=== PATIENT | male | born 1995 | race Caucasian/White ===

== ENCOUNTER 2017-09-09 12:32 | Emergency (ER) | payer OTHER ==
[~2017-09-09] VITALS: Ht 177.8 cm; Wt 74.0 kg
[2017-09-09 12:34] VITALS: TEMP 36.5; Ht 177.8 cm; Wt 74.0 kg
--- NOTE | 2017-09-09 12:47 | EMERGENCY ROOM VISIT NOTE ---
History Report prepared by Macario: Jaylyn Julian Under the Supervision of: Dr. Kelvin Foster M.D. First contact with patient: 12:38 Chief Complaint: COUGH Stated Complaint: COUGH,CHEST PAIN,SWOLLEN THROAT History of Present Illness The patient is a 22 year old male who presents to the Emergency Room with complaints of a persistent cough that began three weeks ago. The patient states that his symptoms began three weeks ago and then gradually worsened over the last two days. He states that he has been experiencing chest pain that he describes as a soreness due to his cough. The patient denies any nausea or vomiting. The patient states that he developed a sore throat over the past few days, watery eyes, and a subjective fever. He states that his symptoms are worse at night. The patient states that he has been using DayQuil and NyQuil for his symptoms without relief. He denies any recent surgery, recent travel, or personal or family history of blood clots. The patient denies any history of mono. He denies any neck stiffness, headache, or runny nose. The patient denies any recent sick contacts. Source of History: patient Onset: three weeks ago Position: other (global) Quality: other (cough) Timing: other (persistent) Associated Symptoms: + fevers, + sorethroat, + cough, No headache, No neck pain, No nausea, No vomiting Review of Systems See HPI for pertinent positives & negatives. A total of 10 systems reviewed and were otherwise negative. Past Medical & Surgical Medical Problems: (1) Hip fracture Surgical Problems: (1) H/O eye surgery Family History FHx: gallbladder disease Social History Smoking Status: Never Smoker Alcohol Use: occasionally Marital Status: single Housing Status: lives with family Occupation Status: [employer] student Current/Historical Medications Scheduled Azithromycin (Zithromax Z-Maykel), 1 PKT PO UD Prednisone (Prednisone), 50 MG PO DAILY Allergies Coded Allergies: No Known Allergies (Unverified , 09/09/17) Physical Exam Vital Signs Date Time Temp Pulse Resp B/P (MAP) Pulse Ox O2 Delivery O2 Flow Rate FiO2 09/09/17 13:57 97 17 135/44 96 Room Air 09/09/17 13:05 98 Room Air 09/09/17 12:34 36.5 100 20 143/90 98 Room Air Physical Exam GENERAL: Patient is well appearing and in no acute distress. HEENT: Erythema in posterior oropharynx. No acute trauma, normocephalic atraumatic, mucous membranes moist, no nasal congestion, no scleral icterus. NECK: No stridor, no adenopathy, no meningismus, trachea is midline. LUNGS: Periodic cough. No dyspnea. Clear to auscultation and equal bilaterally. No wheeze, no rhonchi. HEART: Regular rate and rhythm. No murmurs, rubs, gallops appreciated. ABDOMEN: Soft, nontender, bowel sounds positive, no masses appreciated, no peritonitis. BACK: No midline tenderness, no CVA tenderness EXTREMITIES: Normal motion all extremities, no cyanosis, no edema. NEUROLOGIC: Alert and oriented, no acute motor or sensory deficits, no focal weakness, cranial nerves grossly intact. SKIN: No rash, no jaundice, no diaphoresis. Medical Decision & Procedures ER Provider Diagnostic Interpretation: X ray results are stated below per my interpretation and the radiologist's interpretation. CHEST 2 VIEWS ROUTINE CLINICAL HISTORY: Persistent cough. COMPARISON STUDY: No previous studies for comparison. FINDINGS: Lung volumes are normal. There is no pneumothorax or pleural effusion. There is no evidence of pneumomediastinum. Cardiomediastinal silhouette is normal. Pulmonary vascularity is normal. No consolidation is identified. IMPRESSION: No acute cardiopulmonary findings. Electronically signed by: Krunal Mcfarland M.D. 09/09/2017 1:31 PM Dictated Date/Time: 09/09/2017 1:29 PM Medications Administered Medications (Trade) Dose Ordered Sig/Unruly Route Start Time Stop Time Status Last Admin Dose Admin Azithromycin (Zithromax Tab) 500 mg NOW STAT PO 09/09/17 13:36 09/09/17 13:37 DC 09/09/17 13:56 500 MG Prednisone (PredniSONE TAB) 60 mg NOW STAT PO 09/09/17 13:36 09/09/17 13:37 DC 09/09/17 13:55 60 MG ED Course 1239: The patient was evaluated in room B5. A complete history and physical exam was performed. 1336: Ordered Prednisone 60 mg PO, Azithromycin 500 mg PO. 1342: I reevaluated the patient and he is resting comfortably. I discussed the exam findings with him and I discussed the treatment plan. He verbalized complete understanding and agreement. He is ready to go home. Medical Decision Differential: Viral, Tonsillitis, Strep, [place], Peritonsillar Abscess, Retropharyngeal Abscess, Otitis, Pneumonia, Influenza, mono, amongst other pathologies entertained. 22 yr old male arrives with persistent cough over last 2 week. No evidence PE nor risk factors. He clearly has erythematous throat and I feel this is more likely infectious than PE thus no indication for CT PE nor dimer. May be mono but with ongoing respiratory symptoms would think otherwise. No evidence of neck stiffness nor sepsis/meningitis. CXR without pneumonia. Will treat with steroids and azithro given healthy college student. Reviewed symptoms requiring return and plan. Medication Reconcilliation Current Medication List: was personally reviewed by me Impression Primary Impression: Persistent cough Additional Impression: Pharyngitis Scribe Attestation The scribe's documentation has been prepared under my direction and personally reviewed by me in its entirety. I confirm that the note above accurately reflects all work, treatment, procedures, and medical decision making performed by me. Departure Information Dispostion Home / Self-Care Prescriptions Prednisone (PREDNISONE) 50 Mg Tab 50 MG PO DAILY for 4 Days, #4 TAB Prov: Kelvin Foster M.D. 09/09/17 Azithromycin (ZITHROMAX Z-MAYKEL) 250 Mg Tab 1 PKT PO UD, #1 PKT Prov: Kelvin Foster M.D. 09/09/17 Referrals [facility] Forms HOME CARE DOCUMENTATION FORM, IMPORTANT VISIT INFORMATION Patient Instructions My [facility] Additional Instructions Rest and keep well hydrated over next few days. Return if increasing shortness of breath, chest pain, fevers or other concerns. You were given initial dose of your antibiotic and steroid. You may start the prescriptions tomorrow. Problem Qualifiers
--- NOTE | 2017-09-09 13:32 | DIAGNOSTIC IMAGING REPORT ---
CHEST 2 VIEWS ROUTINE CLINICAL HISTORY: Persistent cough. COMPARISON STUDY: No previous studies for comparison. FINDINGS: Lung volumes are normal. There is no pneumothorax or pleural effusion. There is no evidence of pneumomediastinum. Cardiomediastinal silhouette is normal. Pulmonary vascularity is normal. No consolidation is identified. IMPRESSION: No acute cardiopulmonary findings. Electronically signed by: Krunal Mcfarland M.D. 09/09/2017 1:31 PM Dictated Date/Time: 09/09/2017 1:29 PM
[2017-09-09] MEDS ORDERED: AZITHROMYCIN 250 MG TAB PO STA (13:36)
[2017-09-09] MEDS ORDERED: PRED50TA PO (13:39)
[2017-09-09] MEDS ORDERED: AZITTAB PO (13:39)
[2017-09-09 13:57] VITALS: BP 135/44; PULSE 97; O2SAT 96
== END 2017-09-09 14:07 | disposition home or self-care (01) ==
LOC: C.EDB 12:34
DX: R05 Cough (principal); J02.9 Acute pharyngitis, unspecified; R07.9 Chest pain, unspecified